=== PATIENT | male | born 1980 | race Caucasian/White ===

== ENCOUNTER 2020-04-09 23:46 | Inpatient (IN) | payer MEDICAID, SELFPAY ==
[2020-04-09 23:51] VITALS: BP 101/67; PULSE 80; RESP 16; TEMP 36.6; O2SAT 97; BMI 27.2
--- NOTE | 2020-04-09 23:52 | ED_ITS ---
HPI - Psych General: Stated Complaint: Psych Eval Time Seen by Provider: 04/09/20 23:50 Source: patient and EMS Mode of arrival: EMS Limitations: no limitations History of Present Illness: HPI Narrative: 40-year-old male that is transferred here for direct admit to psychiatric facility. Patient here stop by the ER for code screening. Patient has had a recent negative cover test he states he has had no cough or fever. See no signs for testing. Patient has been paranoid and is wanting to get help. Associated symptoms: Reports depression Review of Systems Const: Denies: fever(s), chills, body aches or change in appetite Eyes: Denies: blurry vision or eye discomfort ENMT: Denies: throat pain or dental pain Card: Denies: chest pain Resp: Denies: dyspnea GI: Denies: abdominal pain, nausea, vomiting or diarrhea : Denies: dysuria Musc: Denies: neck pain or back pain Skin/Breast: Denies: rash Neuro: Denies: headache(s) Psych: Reports: depression and paranoia Amilcar/Lymph: Denies: easy bruising All/Imm: Denies: urticaria Physical Exam Const: COMMON NORMALS: no acute distress, patient oriented x3 and healthy appearing HENMT: COMMON NORMALS: normocephalic and atraumatic HEAD & SCALP: normocephalic and atraumatic Eye: COMMON NORMALS: Equal, round and reactive pupils present and EOMs intact bilaterally PUPIL: Yes Equal, round and reactive pupils present Neck/C-Spine: COMMON NORMALS: full ROM and supple Chest: COMMONS NORMALS: normal inspection of the chest and normal palpation of entire chest wall Resp: COMMON NORMALS: normal respiratory effort, No retractions, No use of accessory muscles and clear to auscultation bilaterally AUSCULTATION: clear to auscultation bilaterally Cardio: COMMON NORMALS: regular rate, regular rhythm and No murmurs present (Cardio) RATE: regular rate RHYTHM: regular rhythm GI: COMMON NORMALS: Normal to inspection, nondistended, normoactive bowel sounds present, Soft to palpation, non-tender and no masses PALPATION: Yes Soft to palpation Extremity: COMMON NORMALS: normal to inspection and full ROM Neuro: COMMON NORMALS: patient oriented x3, moves all extremities and no focal motor deficits Psych: COMMON NORMALS: cooperative ATTITUDE: Yes Guarded attititude/behavior present ACTIVITY/MOTOR BEHAVIOR: Yes Avoids eye contact (attititude/behavior) MOOD & AFFECT: Yes depressed mood and Yes Flat affect present Skin: COMMON NORMALS: no rashes or lesions noted and no wounds GENERAL SKIN EXAM: no rashes or lesions noted MDM - Psych MDM Narrative: Medical decision making narrative: Patient presents here with acute psychosis along with some paranoia. Patient states he was screened for COVID and had a negative COVID test. He has no cough or fever. He is stable here and stable for admission to psychiatric unit Discharge Plan Discharge Patient Disposition: Admitted As Inpatient Clinical Impression: Paranoia, Psychosis Condition: Stable Coding Level of Care Code ED Renewable Energy Division Manager for Shira Rosa
[2020-04-10 00:15] VITALS: BP 125/83; PULSE 81; RESP 18; TEMP 36.4; O2SAT 98
[2020-04-10 00:38] VITALS: RESP 16
[2020-04-10 06:00] VITALS: BP 116/72; PULSE 61; RESP 18; TEMP 36.5; O2SAT 98
[2020-04-10] MEDS: nicotine 2 mg Gum BUCCAL ×5 (07:51→17:12)
[2020-04-10] MEDS: ARIPiprazole 10 mg Tablet 5 MG PO (12:58)
[2020-04-10 13:11] VITALS: BP 125/82; PULSE 75; RESP 18; TEMP 36.5; O2SAT 96
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
[2020-04-10 22:00] VITALS: RESP 16
--- NOTE | 2020-04-10 22:33 | NUR.SHIFT ---
ON ASSESSMENT, LUNGS BILATERALLY CLEAR THROUGHOUT, HEART SOUNDS ARE NORMAL S1 AND S2, AND BOWEL SOUNDS ARE ACTIVE IN ALL FOUR QUADRANTS. PATIENT JUST SAID THAT HE IS SLEEPY AND NEEDS TO REST. HE HAS BEEN IN HIS BED THIS EVENING SINCE 1900 THIS EVENING WITHOUT INCIDENT.
[2020-04-11 06:00] VITALS: BP 115/71; PULSE 65; RESP 16; TEMP 36.8; O2SAT 97
[2020-04-11] MEDS: nicotine 2 mg Gum BUCCAL ×4 (07:49→17:31)
[2020-04-11] MEDS: ARIPiprazole 10 mg Tablet PO (07:50)
[2020-04-11] MEDS: buPROPion XL (24 HR) 150 mg Tablet PO (10:43)
[2020-04-11 13:21] VITALS: BP 103/67; PULSE 78; RESP 18; TEMP 36.9; O2SAT 97
--- NOTE | 2020-04-11 15:21 | P.PN_ITS ---
Subjective NPU Subjective: Interval history: Gagandeep presented to the appointment reporting that he is tolerating the medication fine but his energy is still low. We discussed the risk benefits and alternatives of initiating Wellbutrin XL and he agreed to proceed as is documented in this note. He denied any issues with eating though did request larger portions, and he does report that he is sleeping well but he feels like he is sleeping too much and he still feels tired. Mental Status Exam MSE Comments: This is an overweight white male with limited dress, grooming and eye contact. No abnormal movements except for psychomotor retardation. Cooperative with exam in mild to moderate distress. Speech was decreased rate and volume, mood described as tired, affect congruent. Thought process linear. Thought content: Patient endorsed some suicidal thinking, there were no homicidal thoughts reported. There are no delusions reported but clear paranoia and persecutory delusions present, he endorsed auditory and visual hallucinations. Attention and concentration were mostly intact in memory was unreliable but none were formally tested. He is alert and oriented times person and place. Insight and judgment are limited, impulse control is impaired. Vitals/I&O/Wt Last Vital Signs Temp 98.9 F 04/11/20 21:05 Pulse 72 04/11/20 21:05 Resp 19 H 04/11/20 21:05 BP 100/61 04/11/20 21:05 Pulse Ox 97 04/11/20 21:05 Weight last 48 hrs Weight 86.183 kg A&P Additional A&P Information (1) Paranoia: (2) Psychosis: Is a 40-year-old white male with acute psychosis with a history of psychotic behavior that led to hospitalization who presents reporting that he is open to a medication trial.. 1. Continue current medication. Initiate Wellbutrin XL 150 mg p.o. every morning. 2. Encourage individual group and milieu therapy. 3. Continue every 15 minute checks. 4. Encourage sober living treatment at the highest level of care to which he is willing to commit. Involuntary Hold Information 96 Hour Hold: 96 Hour Involuntary Admission: No Attestations NPU Medical Necessity Statement*: Inpatient hospitalization is medically necessary and the clinically appropriate intervention at this time. We will monitor medications and make changes as indicated. Likely length of stay 3-5 days. Coding Level of Care Code Acute Landscaping Manager for Shira Rosa
[2020-04-11 21:05] VITALS: BP 100/61; PULSE 72; RESP 19; TEMP 37.2; O2SAT 97
[2020-04-12 06:00] VITALS: BP 111/77; PULSE 67; RESP 17; TEMP 36.7; O2SAT 98
[2020-04-12] MEDS: nicotine 2 mg Gum BUCCAL ×5 (06:07→16:59)
[2020-04-12] MEDS: ARIPiprazole 10 mg Tablet PO (07:57)
[2020-04-12] MEDS: buPROPion XL (24 HR) 150 mg Tablet PO (07:58)
--- NOTE | 2020-04-12 09:27 | P.PN_ITS ---
Subjective NPU Subjective: Interval history: Feliciano presented to the unit frustrated and he needed some de-escalation. He requested only to speak to this racebook writer. When I went down to his room he was somewhat challenging in asking me ?what is the plan,? and ?what are we going to do,? instead of just giving him this sensory deprivation. We had a fairly lengthy discussion about the different things that were going on behind the scenes and that we had discussed with him regarding assisting him in getting an RTF, and starting him on the Wellbutrin and Abilify XL, and helping him manage and treat his paranoia, etc. He calmed down some. He was also requesting that he get his belongings, which I explained we do not do. Ultimately, he wanted to just do some hygiene but he did not identify his toothbrush and things like that that he received, so after that he was able to calm down and identify that we were there to assist him, but he just did not understand the process. Mental Status Exam MSE Comments: This is a well-nourished, overweight, white male, with limited dress and grooming, but adequate eye contact. No abnormal movements, except for mild psychomotor agitation. Semi-cooperative with exam in no acute distress. Speech was normal rate and volume. Mood described as frustrated; affect irritable. Thought process, organized. Thought content: patient denied any suicidal or homicidal ideation; he does endorse some paranoia but he does appear less paranoid; he denied any active hallucinations. Attention, concentration, and memory appeared intact but none were formally tested. Alert and oriented times three. Insight and judgment are limited but improving. Impulse control is limited. Vitals/I&O/Wt Last Vital Signs Temp 98.5 F 04/12/20 20:23 Pulse 68 04/12/20 20:23 Resp 18 04/12/20 20:23 BP 99/63 04/12/20 20:23 Pulse Ox 96 04/12/20 20:23 A&P Additional A&P Information (1) Paranoia: (2) Psychosis: Is a 40-year-old white male with acute psychosis with a history of psychotic behavior that led to hospitalization who presents reporting that he is open to a medication trial.. 1. Continue current medication. 2. Encourage individual group and milieu therapy. 3. Continue every 15 minute checks. 4. Encourage sober living treatment at the highest level of care to which he is willing to commit. 5. He has a commitment from an [facility], however he must get a negative COVID test to be able to accept the bed. A PTC COVID was ordered after consultation with Dr. Castro. Involuntary Hold Information 96 Hour Hold: 96 Hour Involuntary Admission: No Attestations NPU Medical Necessity Statement*: Inpatient hospitalization is medically necessary and the clinically appropriate intervention at this time. We will monitor medications and make changes as indicated. Likely length of stay 2-4 days. Will discharge to [facility] when COVID testing returns negative. Coding Level of Care Code Acute Control Tower Operator for Shira Rosa
[2020-04-12 14:00] VITALS: BP 118/79; PULSE 97; RESP 20; TEMP 36.6; O2SAT 96
[2020-04-12 20:23] VITALS: BP 99/63; PULSE 68; RESP 18; TEMP 36.9; O2SAT 96
--- NOTE | 2020-04-13 04:34 | PC.NURSE ---
Patient is talkative this evening. He is an avid reader and likes books like [employer]ingerprints [employer] He feels bored and locked up in this unit. He stated it feels worse than shelter. He seemed to go to sleep without much effort today. He refused medication tonight for anxiety although he said is feeling anxious.
[2020-04-13] MEDS: nicotine 2 mg Gum BUCCAL ×6 (05:53→17:16)
[2020-04-13 06:00] VITALS: BP 121/87; PULSE 88; RESP 20; TEMP 36.6; O2SAT 96
[2020-04-13] MEDS: buPROPion XL (24 HR) 150 mg Tablet PO (09:51)
--- NOTE | 2020-04-13 13:02 | P.PN_ITS ---
Subjective NPU Subjective: Interval history: Gagandeep presents today looking forward to getting his lab work back and heading to the [facility] that has accepted him. He reported that he is doing better each day on the medication. Advised him about and to increase his Abilify to 15 mg and he understood and agreed to proceed as is documented in this note. He denied any problems or issues just expressed an interest in being able to discharge as soon as possible. He reports that he is eating fine and sleeping less which is good. Mental Status Exam MSE Comments: This is a well-nourished, overweight, white male, with limited dress and grooming, but improving eye contact. No abnormal movements, except for mild psychomotor retardation. Cooperative with exam in no acute distress. Speech was normal rate and volume. Mood described as a little better; affect slightly subdued. Thought process, organized. Thought content: patient denied any suicidal or homicidal ideation; he does endorse some paranoia but he does appear less paranoid; he denied any active hallucinations. Attention, concentration, and memory appeared intact but none were formally tested. He is alert and oriented times three. Insight and judgment are limited but improving. Impulse control is limited. Vitals/I&O/Wt Last Vital Signs Temp 97.8 F 04/13/20 06:00 Pulse 88 04/13/20 06:00 Resp 20 H 04/13/20 06:00 BP 121/87 04/13/20 06:00 Pulse Ox 96 04/13/20 06:00 A&P Additional A&P Information (1) Paranoia: (2) Psychosis: Is a 40-year-old white male with acute psychosis with a history of psychotic behavior that led to hospitalization who presents reporting that he is open to a medication trial. 1. Continue current medication. 2. Encourage individual group and milieu therapy. 3. Continue every 15 minute checks. 4. Encourage sober living treatment at the highest level of care to which he is willing to commit. 5. He has a commitment from an [facility], awaiting the results from his COVID test. Involuntary Hold Information 96 Hour Hold: 96 Hour Involuntary Admission: No Attestations NPU Medical Necessity Statement*: Inpatient hospitalization is medically necessary and the clinically appropriate intervention at this time. We will monitor medications and make changes as indicated. Likely length of stay 2-4 days. Will discharge to [facility] when COVID testing returns negative. Coding Level of Care Code Acute Volunteer Manager for Shira Rosa
[2020-04-13 14:00] VITALS: BP 104/68; PULSE 80; RESP 18; TEMP 36.6; O2SAT 95
[2020-04-13 21:12] VITALS: BP 97/59; PULSE 70; RESP 15; TEMP 36.4; O2SAT 97
[2020-04-14] MEDS: nicotine 2 mg Gum BUCCAL ×5 (03:05→12:08)
[2020-04-14 03:42] LABS: Coronavirus Lab Test PTC Negative
[2020-04-14 06:00] VITALS: BP 123/80; PULSE 67; RESP 15; TEMP 36.3; O2SAT 96
[2020-04-14] MEDS: buPROPion XL (24 HR) 150 mg Tablet PO (08:13)
--- NOTE | 2020-04-14 08:14 | PC.NURSE ---
refused scheduled Abilify, states it makes him too tired
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
[2020-04-14 11:34] VITALS: BP 123/80; PULSE 67; RESP 15; TEMP 36.3; O2SAT 96
== END 2020-04-14 13:03 | disposition home or self-care (01) | DRG 885 ==
LOC: ER 23:54 → NP 04-10
PROVIDERS: Admitting Provider Psychiatry & Neurology Psychiatry; Visit Provider Psychiatry & Neurology Psychiatry
DX: F23 Brief psychotic disorder (principal); R45.851 Suicidal ideations; F22 Delusional disorders; F32.9 Major depressive disorder, single episode, unspecified; Z59.0 Homelessness; Z81.3 Family history of other psychoactive substance abuse and dependence; F41.9 Anxiety disorder, unspecified; F19.10 Other psychoactive substance abuse, uncomplicated
CPT/HCPCS: 12345; 87635; 96372; 99284

== ENCOUNTER 2020-05-02 21:00 | Inpatient (IN) | payer MEDICAID, SELFPAY ==
[2020-05-02 21:38] VITALS: BMI 27.2
[2020-05-02 21:58] VITALS: BP 167/92; PULSE 66; RESP 18; TEMP 36.4; O2SAT 98
[2020-05-02 21:59] VITALS: BP 167/92; PULSE 66; RESP 18; TEMP 36.4; O2SAT 98
--- NOTE | 2020-05-02 22:30 | PC.NURSE ---
Skin assessment revealed no wounds or abnormalities.
[2020-05-03 06:00] VITALS: BP 127/84; PULSE 56; RESP 15; TEMP 36.5; O2SAT 95
[2020-05-03] MEDS: buPROPion XL (24 HR) 150 mg Tablet PO (07:49)
[2020-05-03] MEDS: folic acid 1 mg Tablet PO (07:49)
[2020-05-03] MEDS: nicotine 2 mg Gum BUCCAL ×4 (07:49→17:15)
[2020-05-03] MEDS: thiamine 100 mg Tablet 200 MG PO (07:50)
--- NOTE | 2020-05-03 13:21 | NPU.GN ---
Gagandeep did not attend group this afternoon.
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
[2020-05-03 14:00] VITALS: BP 117/82; PULSE 82; RESP 18; TEMP 36.2; O2SAT 96
[2020-05-03] MEDS: ARIPiprazole 30 mg Tablet 15 MG PO (21:53)
[2020-05-03] MEDS: trazodone 50 mg Tablet PO (21:54)
[2020-05-03 22:00] VITALS: BP 128/83; PULSE 79; RESP 18; TEMP 36.5; O2SAT 98
--- NOTE | 2020-05-04 00:54 | NUR.SHIFT ---
Patient is calm, cooperative, and talkative this evening. He told me that he is upset that his placement in [place] did not work out and that he is concerned that he will have his probation violated as a result of being homeless again. He wishes to speak with the psych social worker in the morning. He stated that he don't want to be placed in a facility but that he wishes that he could get into his own apartment. he states that he has an income and he feels like if he had a fresh start in his own home that he could be successful.
[2020-05-04 05:59] VITALS: BP 117/76; PULSE 97; RESP 16; TEMP 36.6; O2SAT 98
[2020-05-04] MEDS: folic acid 1 mg Tablet PO (08:24)
[2020-05-04] MEDS: thiamine 100 mg Tablet 200 MG PO (08:24)
[2020-05-04] MEDS: buPROPion XL (24 HR) 150 mg Tablet PO (08:24)
[2020-05-04] MEDS: nicotine 2 mg Gum 4 MG BUCCAL ×2 (08:26→20:16)
[2020-05-04] MEDS: acetaminophen 325 mg Tablet 650 MG PO (09:23)
[2020-05-04] MEDS: ibuprofen 800 mg tablet PO (13:43)
[2020-05-04 14:00] VITALS: BP 122/64; PULSE 68; RESP 18; TEMP 37.1; O2SAT 98
--- NOTE | 2020-05-04 17:25 | P.PN_ITS ---
Subjective NPU Subjective: Interval history: Gagandeep participated in and he is doing okay. He reports that he was hoping that the social worker assistant was able to make some of the calls that they discussed as he is somewhat anxious about finding some place to live. He reports that he is adjusting to the restart of his medication but that overall he feels things are going in the right direction. Mental Status Exam MSE Comments: This is a well-nourished, overweight, white male, with adequate dress and grooming, and limited eye contact. No abnormal movements, except for mild psychomotor retardation. Cooperative with exam in no acute distress. Speech was decreased rate and normal volume. Mood described as depressed; affect congruent. Thought process, organized. Thought content: patient denied any suici sudha or homicidal ideation; there is no delusions reported and he does appear less paranoid; he denied any active hallucinations. Attention, concentration, and memory appeared intact but none were formally tested. He is alert and oriented times three. Insight and judgment are fair. Impulse control is limited. Vitals/I&O/Wt Last Vital Signs Temp 98.1 F 05/04/20 22:00 Pulse 70 05/04/20 22:00 Resp 18 05/04/20 22:00 BP 141/86 05/04/20 22:00 Pulse Ox 99 05/04/20 22:00 A&P Additional A&P Information (1) Paranoia: (2) Psychosis: Is a 40-year-old white male with acute psychosis with a history of psychotic behavior that led to hospitalization less than a month ago who returns due to reports of suicidality and some psychosocial stressors, who has been off of his medication. 1. Continue current medication. 2. Encourage individual group and milieu therapy. 3. Continue every 15 minute checks. 4. Encourage sober living treatment at the highest level of care to which he is willing to commit. 5. We will identify possible placement options. Involuntary Hold Information 96 Hour Hold: 96 Hour Involuntary Admission: No Attestations NPU Medical Necessity Statement*: Inpatient hospitalization is medically necessary and the clinically appropriate intervention at this time. We will monitor medications and make changes as indicated. Likely length of stay 2-4 days. Coding Level of Care Code Acute Diaphragm Builder for Shira Rosa
[2020-05-04 22:00] VITALS: BP 141/86; PULSE 70; RESP 18; TEMP 36.7; O2SAT 99
[2020-05-05 06:00] VITALS: BP 103/64; PULSE 72; RESP 16; TEMP 36.7; O2SAT 97
[2020-05-05] MEDS: thiamine 100 mg Tablet 200 MG PO (08:14)
[2020-05-05] MEDS: buPROPion XL (24 HR) 150 mg Tablet PO (08:14)
[2020-05-05] MEDS: folic acid 1 mg Tablet PO (08:14)
[2020-05-05] MEDS: ibuprofen 800 mg tablet PO (08:56)
[2020-05-05 14:00] VITALS: BP 106/73; PULSE 90; RESP 20; TEMP 36.2; O2SAT 97
--- NOTE | 2020-05-05 17:05 | PM.NPN ---
Subjective NPU Subjective: Interval history: Gagandeep presented today reporting that his energy continues to be low. He refused his nighttime Abilify last night but continues to assert that he was having this difficulty before he started the Abilify. We then discussed the common causes of low energy and people and agreed that I would review and make recommendations on the matter. He ultimately asked if there was not a pill that could give him energy. We discussed the fact that there clearly are pills like that but given his situation it would not be appropriate and in general giving medications/stimulants for low energy are not appropriate without a robust investigation of the cause. Mental Status Exam MSE Comments: This is a well-nourished, overweight, white male, with adequate dress and grooming, and limited eye contact. No abnormal movements, except for mild psychomotor retardation. Cooperative with exam in no acute distress. Speech was decreased rate and normal volume. Mood described as I am tired; affect subdued. Thought process, organized. Thought content: patient denied any suicidal or homicidal ideation; there is no delusions reported and he does appear less paranoid; he denied any active hallucinations. Attention, concentration, and memory appeared intact but none were formally tested. He is alert and oriented times three. Insight and judgment are fair. Impulse control is limited. Vitals/I&O/Wt Last Vital Signs Temp 98.2 F 05/05/20 21:21 Pulse 73 05/05/20 21:21 Resp 18 05/05/20 21:21 BP 116/76 05/05/20 21:21 Pulse Ox 98 05/05/20 21:21 A&P Additional A&P Information (1) Paranoia: (2) Psychosis: Is a 40-year-old white male with acute psychosis with a history of psychotic behavior that led to hospitalization less than a month ago who returns due to reports of suicidality and some psychosocial stressors, who has been off of his medication. 1. Continue current medication. 2. Encourage individual group and milieu therapy. 3. Continue every 15 minute checks. 4. Encourage sober living treatment at the highest level of care to which he is willing to commit. 5. We will identify possible placement options. 6. We will review his records to identify if there are any concerns for hypothyroid, anemia or iron deficiency as he denied actual sleep difficulties/symptoms consistent with apnea. Involuntary Hold Information 96 Hour Hold: 96 Hour Involuntary Admission: No Attestations NPU Medical Necessity Statement*: Inpatient hospitalization is medically necessary and the clinically appropriate intervention at this time. We will monitor medications and make changes as indicated. Likely length of stay 2-4 days. Coding Level of Care Code Acute Ham Rolling Machine Operator for Shira Rosa
[2020-05-05] MEDS: trazodone 50 mg Tablet PO (20:21)
[2020-05-05] MEDS: ARIPiprazole 30 mg Tablet 15 MG PO (20:21)
--- NOTE | 2020-05-05 20:28 | PC.NURSE ---
PRN TRAZODONE ADMINISTERED TRAZODONE 50MG PO PER PT REQUEST FOR SLEEP AID. WILL MONITOR FOR MEDICATION EFFECTIVENESS.
[2020-05-05 21:21] VITALS: BP 116/76; PULSE 73; RESP 18; TEMP 36.8; O2SAT 98
--- NOTE | 2020-05-05 22:11 | PC.NURSE ---
attn Social workers Patient is interested in going to a care home short term and is interested in receiving housing assistance via the [facility]. He is aware that there are options available for possible assistance in obtaining financial help to establish housing in our area. He stated that his roommate received this assistance and they helped pay his rent/utilities for 6 months. Gagandeep's desire is to be in his own home and feels that he would be more successful if he had his own residence. He keeps saying he needs stability in his life.
[2020-05-06 06:00] VITALS: BP 88/51; PULSE 85; RESP 14; TEMP 36.8; O2SAT 98
[2020-05-06] MEDS: thiamine 100 mg Tablet 200 MG PO (08:03)
[2020-05-06] MEDS: buPROPion XL (24 HR) 150 mg Tablet PO (08:03)
[2020-05-06] MEDS: folic acid 1 mg Tablet PO (08:03)
[2020-05-06 14:00] VITALS: BP 104/72; PULSE 99; RESP 20; TEMP 36.2; O2SAT 98
--- NOTE | 2020-05-06 14:32 | PM.NPN ---
Subjective NPU Subjective: Interval history: Ravi presented today reporting that he is feeling about the same as he is felt. He continues to report feeling subdued. None of the laboratory work from the outside hospital suggest any clear issues we discussed the risk benefits and alternatives of getting some labs in the morning and replete as documented in this note. Mental Status Exam MSE Comments: This is a well-nourished, overweight, white male, with adequate dress and grooming, and limited eye contact. No abnormal movements, except for mild psychomotor retardation. Cooperative with exam in no acute distress. Speech was decreased rate and normal volume. Mood described as same ole same ole; affect subdued. Thought process, organized. Thought content: patient denied any suicidal or homicidal ideation; there is no delusions reported and he does appear less paranoid; he denied any active hallucinations. Attention, concentration, and memory appeared intact but none were formally tested. He is alert and oriented times three. Insight and judgment are fair. Impulse control is limited. Vitals/I&O/Wt Last Vital Signs Temp 97.2 F L 05/06/20 14:00 Pulse 99 05/06/20 14:00 Resp 20 H 05/06/20 14:00 BP 104/72 05/06/20 14:00 Pulse Ox 98 05/06/20 14:00 A&P Additional A&P Information (1) Paranoia: (2) Psychosis: Is a 40-year-old white male with acute psychosis with a history of psychotic behavior that led to hospitalization less than a month ago who returns due to reports of suicidality and some psychosocial stressors, who has been off of his medication. 1. Continue current medication. 2. Encourage individual group and milieu therapy. 3. Continue every 15 minute checks. 4. Encourage sober living treatment at the highest level of care to which he is willing to commit. 5. We will identify possible placement options. 6. We will recheck labs in the morning. Involuntary Hold Information 96 Hour Hold: 96 Hour Involuntary Admission: No Attestations NPU Medical Necessity Statement*: Inpatient hospitalization is medically necessary and the clinically appropriate intervention at this time. We will monitor medications and make changes as indicated. Likely length of stay 1-3 days. Coding Level of Care Code Acute Brusher Tender for Shira Rosa
[2020-05-06] MEDS: ibuprofen 800 mg tablet PO (18:46)
[2020-05-06] MEDS: acetaminophen 325 mg Tablet 650 MG PO (19:34)
[2020-05-06] MEDS: ARIPiprazole 30 mg Tablet 15 MG PO (21:13)
[2020-05-06] MEDS: trazodone 50 mg Tablet PO (21:13)
[2020-05-06 21:43] VITALS: BP 131/97; PULSE 94; RESP 15; TEMP 36.7; O2SAT 97
[2020-05-07 06:00] VITALS: BP 110/71; PULSE 68; RESP 17; TEMP 36.4; O2SAT 96
[2020-05-07] MEDS: folic acid 1 mg Tablet PO (07:59)
[2020-05-07] MEDS: buPROPion XL (24 HR) 150 mg Tablet PO (07:59)
[2020-05-07] MEDS: thiamine 100 mg Tablet 200 MG PO (07:59)
[2020-05-07] MEDS: ibuprofen 800 mg tablet PO (10:55)
[2020-05-07 14:00] VITALS: BP 92/55; PULSE 71; RESP 16; TEMP 36.9; O2SAT 97
--- NOTE | 2020-05-07 15:52 | P.PN_ITS ---
Subjective NPU Subjective: Interval history: Gagandeep presents today essentially unchanged and still reporting his general lethargy. We discussed the risk benefits and alternatives of getting repeat set of labs in the morning which he understood and agreed to proceed as documented in this note. We also reviewed a plan to work with the treatment team in the morning to see if there are any options for placement/RCF given his situation with the [facility]. Mental Status Exam MSE Comments: This is a well-nourished, overweight, white male, with adequate dress and grooming, and limited eye contact. No abnormal movements, except for mild psychomotor retardation. Cooperative with exam in no acute distress. Speech was decreased rate and normal volume. Mood described as still tired; affect subdued. Thought process, organized. Thought content: patient denied any suicidal or homicidal ideation; there is no delusions reported and he does appear less paranoid; he denied any active hallucinations. Attention, concentration, and memory appeared intact but none were formally tested. He is alert and oriented times three. Insight and judgment are fair. Impulse control is limited. Vitals/I&O/Wt Last Vital Signs Temp 97.6 F 05/07/20 22:00 Pulse 68 05/07/20 22:00 Resp 18 05/07/20 22:00 BP 93/53 05/07/20 22:00 Pulse Ox 96 05/07/20 22:00 Weight last 48 hrs Weight 86.183 kg A&P Additional A&P Information (1) Paranoia: (2) Psychosis: Is a 40-year-old white male with acute psychosis with a history of psychotic behavior that led to hospitalization less than a month ago who returns due to reports of suicidality and some psychosocial stressors, who has been off of his medication. 1. Continue current medication. 2. Encourage individual group and milieu therapy. 3. Continue every 15 minute checks. 4. Encourage sober living treatment at the highest level of care to which he is willing to commit. 5. We will identify possible placement options. 6. Check lab results.. Involuntary Hold Information 96 Hour Hold: 96 Hour Involuntary Admission: No Attestations NPU Medical Necessity Statement*: Inpatient hospitalization is medically necessary and the clinically appropriate intervention at this time. We will monitor medications and make changes as indicated. Likely length of stay 1-3 days. Coding Level of Care Code Acute Retail Presentation Specialist for Shira Rosa
[2020-05-07] MEDS: trazodone 50 mg Tablet PO (21:18)
[2020-05-07] MEDS: ARIPiprazole 30 mg Tablet 15 MG PO (21:18)
[2020-05-07 22:00] VITALS: BP 93/53; PULSE 68; RESP 18; TEMP 36.4; O2SAT 96
[2020-05-08 06:00] VITALS: BP 92/49; PULSE 97; RESP 15; TEMP 36.7; O2SAT 97
[2020-05-08 07:20] LABS: Alanine Aminotransferase 40 U/L (0-41); Albumin Level 4.7 g/dL (3.5-5.2); Alkaline Phosphatase 95 IU/L (40-130); Chloride 104 mmol/L (98-107); Iron 120 ug/dL (59-158); Percent Saturation 35.3 % (20-50); Potassium 4.8 mmol/L (3.5-5.1); Sodium 139 mmol/L (136-145); Total Iron Binding Capacity 339 mcg/dl; Unsaturated Iron Binding 219 ug/dL (112-347)
[2020-05-08 07:54] LABS: Erythrocyte Sedimentation Rate 22 mm/hr (0-10)
[2020-05-08 08:09] LABS: Anion Gap 17.7 (5-19); Aspartate Amino Transferase 24 U/L (0-40); Blood Urea Nitrogen 19 mg/dL (6-20); Carbon Dioxide 22 mmol/L (22-29); Globulin 2.8 g/dL (1.3-4.6); Glomerular Filtration Rate 93.5 mL/min (90-130); Glucose 98 mg/dL (65-115); Osmolality Calculated 290 mOsm/kg (285-295); Thyroid Stimulating Hormone 1.74 uIU/mL (0.27-4.20); Total Bilirubin 0.2 mg/dL (0.15-1.2); Total Protein 7.3 g/dL (6.6-8.7)
[2020-05-08] MEDS: thiamine 100 mg Tablet 200 MG PO (08:22)
[2020-05-08] MEDS: buPROPion XL (24 HR) 150 mg Tablet PO (08:22)
[2020-05-08] MEDS: folic acid 1 mg Tablet PO (08:22)
[2020-05-08 14:22] VITALS: BP 122/80; PULSE 79; RESP 18; TEMP 36.2; O2SAT 98
--- NOTE | 2020-05-08 17:22 | P.PN_ITS ---
Subjective NPU Subjective: Interval history: Gagandeep presents today having secured an acceptance at an [facility]. He is very happy off that. We discussed his laboratory studies which were only significant for elevated ESR with skin studies is commonly seen in people who complain of fatigue but it is a nonspecific finding which may require additional exploration. Otherwise he is excited about the opp ortunity and we discussed getting his medications and everything ordered today so that there are no hold-ups for an early discharge tomorrow. Mental Status Exam MSE Comments: This is a well-nourished, overweight, white male, with adequate dress and grooming, and limited eye contact. No abnormal movements, except for resolving psychomotor retardation. Cooperative with exam in no acute distress. Speech was more normal rate and normal volume. Mood described as happy about the placement; affect less subdued. Thought process, organized. Thought content: patient denied any suicidal or homicidal ideation; there were no delusions reported or noted: He denied any active hallucinations. Attention, concentr ation, and memory appeared intact but none were formally tested. He is alert and oriented times three. Insight and judgment are fair. Impulse control is limited, but improving. Vitals/I&O/Wt Last Vital Signs Temp 97.2 F L 05/08/20 14:22 Pulse 79 05/08/20 14:22 Resp 18 05/08/20 14:22 BP 122/80 05/08/20 14:22 Pulse Ox 98 05/08/20 14:22 Weight last 48 hrs Weight 86.183 kg Data NPU : 05/08/20 06:43 A&P Additional A&P Information (1) Paranoia: (2) Psychosis: Is a 40-year-old white male with acute psychosis with a history of psychotic behavior that led to hospitalization less than a month ago who returns due to reports of suicidality and some psychosocial stressors, who has been off of his medication. 1. Continue current medication. 2. Encourage individual group and milieu therapy. 3. Continue every 15 minute checks. 4. Encourage sober living treatment at the highest level of care to which he is willing to commit. 5. We will discharge tomorrow to the excepting [facility]. 6. Lab work unremarkable except for an elevated ESR. Involuntary Hold Information 96 Hour Hold: 96 Hour Involuntary Admission: No Attestations NPU Medical Necessity Statement*: Inpatient hospitalization is medically necessary and the clinically appropriate intervention at this time. We will monitor medications and make changes as indicated. Tentative plan for discharge tomorrow. Coding Level of Care Code Acute Assistant Education Director for Shira Rosa
[2020-05-08] MEDS: hydrocortisone 1% cream 28 gm 1 APPLIC TOPICAL (17:45)
[2020-05-08] MEDS: trazodone 50 mg Tablet PO (21:49)
[2020-05-08] MEDS: ARIPiprazole 30 mg Tablet 15 MG PO (21:51)
[2020-05-08 22:00] VITALS: BP 106/66; PULSE 70; RESP 18; TEMP 36.8; O2SAT 98
[2020-05-09 06:00] VITALS: BP 81/47; PULSE 62; RESP 16; TEMP 36.8; O2SAT 96
[2020-05-09] MEDS: buPROPion XL (24 HR) 150 mg Tablet PO (07:49)
[2020-05-09] MEDS: folic acid 1 mg Tablet PO (07:49)
[2020-05-09] MEDS: thiamine 100 mg Tablet 200 MG PO (07:49)
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
[2020-05-09 09:33] VITALS: BP 81/47; PULSE 62; RESP 16; TEMP 36.8; O2SAT 96
== END 2020-05-09 12:32 | disposition home or self-care (01) | DRG 885 ==
PROVIDERS: Admitting Provider Psychiatry & Neurology Psychiatry; Visit Provider Psychiatry & Neurology Psychiatry
DX: F23 Brief psychotic disorder (principal); F19.10 Other psychoactive substance abuse, uncomplicated; L30.9 Dermatitis, unspecified; Z62.810 Personal history of physical and sexual abuse in childhood; E66.9 Obesity, unspecified; Z68.27 Body mass index [BMI] 27.0-27.9, adult
CPT/HCPCS: 12345; 36415; 80053; 83540; 83550; 84443; 85651; 96372

== ENCOUNTER 2020-06-06 13:27 | Outpatient (CLI) | payer MEDICAID, SELFPAY ==
--- NOTE | 2020-06-06 13:30 | MM_ITS ---
WS: [id number] DIAGNOSTIC BILATERAL DIGITAL MAMMOGRAM WITH CAD LEFT breast ultrasound, limited. HISTORY: breast mass - left breast 4-5 oclock position COMPARISON: None available. TECHNIQUE: Bilateral craniocaudad, mediolateral oblique, and mediolateral views are submitted. Spot c ompression LEFT CC and MLO. Computer aided detection utilized. Breast composition: The breasts are almost entirely fatty. Palpable markers are placed over the later al mid LEFT breast tissue. There is no underlying mass identified. There are benign-appearing fatty r eplaced lymph nodes in the LEFT axilla. No nipple retraction. No suspicious calcifications in either breast. LEFT breast ultrasound, limited. Ultrasound directed to the palpable abnormality. There is a narrow band of soft tissue but no mass id entified. Probably represents muscle. No shadowing or increased vascularity. Benign fatty replaced ly mph nodes in the axilla. MM/[id number] IMPRESSION: BI-RADS: 2-Benign FOLLOW UP: See Report No additional follow-up necessary. LACK OF RADIOGRAPHIC EVIDENCE OF MALIGNANCY SHOULD NOT DELAY BIOPSY IF A CLINIC ALLY SUSPICIOUS MASS IS PRESENT.
--- NOTE | 2020-06-06 14:15 | US_ITS ---
WS: [id number] DIAGNOSTIC BILATERAL DIGITAL MAMMOGRAM WITH CAD LEFT breast ultrasound, limited. HISTORY: breast mass - left breast 4-5 oclock position COMPARISON: None available. TECHNIQUE: Bilateral craniocaudad, mediolateral oblique, and mediolateral views are submitted. Spot c ompression LEFT CC and MLO. Computer aided detection utilized. Breast composition: The breasts are almost entirely fatty. Palpable markers are placed over the later al mid LEFT breast tissue. There is no underlying mass identified. There are benign-appearing fatty r eplaced lymph nodes in the LEFT axilla. No nipple retraction. No suspicious calcifications in either breast. LEFT breast ultrasound, limited. Ultrasound directed to the palpable abnormality. There is a narrow band of soft tissue but no mass id entified. Probably represents muscle. No shadowing or increased vascularity. Benign fatty replaced ly mph nodes in the axilla. US/US breast LT limited* [id number] IMPRESSION: BI-RADS: 2-Benign FOLLOW UP: See Report No additional follow-up necessary. LACK OF RADIOGRAPHIC EVIDENCE OF MALIGNANCY SHOULD NOT DELAY BIOPSY IF A CLINIC ALLY SUSPICIOUS MASS IS PRESENT.
== END 2020-06-06 13:28 | disposition home or self-care (01) ==
PROVIDERS: Visit Provider Nurse Practitioner Family
DX: N63.20 Unspecified lump in the left breast, unspecified quadrant (principal)
CPT/HCPCS: 76642; 77066

== ENCOUNTER → 2020-07-07 11:55 | Outpatient (BNVA) | payer MEDICAID, SELFPAY | PROVIDERS: Visit Provider Nurse Practitioner Family | DX: R53.83 Other fatigue (principal); M25.50 Pain in unspecified joint; E55.9 Vitamin D deficiency, unspecified; K40.90 Unilateral inguinal hernia, without obstruction or gangrene, not specified as recurrent; Z13.6 Encounter for screening for cardiovascular disorders; Z79.899 Other long term (current) drug therapy; Z90.79 Acquired absence of other genital organ(s) | CPT/HCPCS: 80053; 80061; 81003; 82306; 82607; 82746; 83036; 83550; 84402; 84403; 84439; 84443; 84481; 85025; 85651; 86140 ==

== ENCOUNTER → 2020-08-07 13:48 | Outpatient (BNVA) | payer MEDICAID, SELFPAY | PROVIDERS: Visit Provider Nurse Practitioner Family | DX: R53.83 Other fatigue (principal); E55.9 Vitamin D deficiency, unspecified; K40.90 Unilateral inguinal hernia, without obstruction or gangrene, not specified as recurrent; L30.9 Dermatitis, unspecified; Z13.6 Encounter for screening for cardiovascular disorders; Z79.899 Other long term (current) drug therapy; Z90.79 Acquired absence of other genital organ(s) | CPT/HCPCS: 86000; 86618; 86666; 86757 ==

== ENCOUNTER → 2020-08-22 14:27 | Outpatient (BNVA) | payer MEDICAID, SELFPAY | PROVIDERS: Visit Provider Psychiatry & Neurology Psychiatry | DX: F25.1 Schizoaffective disorder, depressive type (principal); F43.12 Post-traumatic stress disorder, chronic; F17.200 Nicotine dependence, unspecified, uncomplicated | CPT/HCPCS: 99204 ==

== ENCOUNTER → 2020-09-28 08:15 | Outpatient (BNVA) | payer MEDICAID, SELFPAY ==
[2020-09-08 11:00] VITALS: BP 136/86; BMI 28.0
== END ==
PROVIDERS: Visit Provider Counselor Mental Health
DX: F43.12 Post-traumatic stress disorder, chronic (principal); F25.1 Schizoaffective disorder, depressive type
CPT/HCPCS: 90834

== ENCOUNTER → 2020-10-02 07:34 | Outpatient (BNVA) | payer MEDICAID, SELFPAY ==
[2020-09-08 11:00] VITALS: BP 136/86; BMI 28.0
== END ==
PROVIDERS: Visit Provider Psychiatry & Neurology Psychiatry
DX: F25.1 Schizoaffective disorder, depressive type (principal); F43.12 Post-traumatic stress disorder, chronic; F19.10 Other psychoactive substance abuse, uncomplicated
CPT/HCPCS: 99214

== ENCOUNTER 2020-10-24 17:41 | Inpatient (IN) | payer MEDICAID, SELFPAY ==
[2020-09-08 11:00] VITALS: BP 136/86; BMI 28.0
[2020-10-24 17:47] VITALS: BP 136/96; PULSE 120; RESP 18; TEMP 36.7; O2SAT 96; BMI 29.6
--- NOTE | 2020-10-24 17:47 | ED_ITS ---
HPI - Psych General: Chief Complaint: Psychiatric Symptoms Stated Complaint: HALLUCINATIONS Time Seen by Provider: 10/24/20 17:43 Source: patient and EMS Mode of arrival: EMS Limitations: no limitations History of Present Illness: HPI Narrative: 40-year-old male has a history of schizophrenia and is currently on Wellbutrin needs to take much more medications for schizophrenia. Patient brought here by EMS as he is at home stating that he has been active monitored by multiple cameras in his health. He states that most people out to get him and they are watching him. Patient is extremely paranoid here. He will not make eye contact with me and is difficult to get much history as he is very paranoid to talk to me. He denies any suicidal homicidal ideations. Associated symptoms: Reports auditory hallucinations Review of Systems Const: Denies: fever(s), chills, body aches or change in appetite Eyes: Denies: blurry vision or eye discomfort ENMT: Denies: throat pain or dental pain Card: Denies: chest pain Resp: Denies: dyspnea GI: Denies: abdominal pain, nausea, vomiting or diarrhea : Denies: dysuria Musc: Denies: neck pain or back pain Skin/Breast: Denies: rash Neuro: Denies: headache(s) Psych: Reports: paranoia and auditory hallucinations Amilcar/Lymph: Denies: easy bruising All/Imm: Denies: urticaria PFSH ED PFSH: Medical History Facial eczema Generalized anxiety disorder Hypogonadism Vitamin D deficiency Surgical History H/O bilateral orchiectomies Patient has history of bilateral orchiectomies that patient reports was done due to testicular torsion. Status post right inguinal hernia repair Family History Other Cancer Family history of premature coronary artery disease Lung disease Social History Smoking and tobacco status: current every day smoker cigarettes Packs smoked per day: 0.20 and e-cigarettes E-Cigarette Details: vaporizer device and with nicotine Quit status (tobacco): has tried quititng Number of times tried to quit tobacco: 2 Second hand smoke exposure: No Alcohol intake: former Adopted: No Caregiver/support person: No Lives independently: No Household members: other Details: residential facility Housing: Assisted Living Facility Number of children: 0 Number of grandchildren: 0 Highest education level completed: GED or Equivalent service: No Current occupational status: disabled Current occupational exposures/hazards: No Pets and animals: No History of recent travel: No Leisure activites: games Sexually active: No Current gender identity: Male Rachael/Rastafarian: None Special rachael needs: No Agree to transfusion: Yes Financial difficulty paying for basics: Not Very Hard Physical Exam Const: COMMON NORMALS: no acute distress, patient oriented x3 and healthy appearing HENMT: COMMON NORMALS: normocephalic and atraumatic HEAD & SCALP: normocephalic and atraumatic Eye: COMMON NORMALS: Equal, round and reactive pupils present and EOMs intact bilaterally PUPIL: Yes Equal, round and reactive pupils present Neck/C-Spine: COMMON NORMALS: full ROM and supple Chest: COMMONS NORMALS: normal inspection of the chest and normal palpation of entire chest wall Resp: COMMON NORMALS: normal respiratory effort, No retractions, No use of accessory muscles and clear to auscultation bilaterally AUSCULTATION: clear to auscultation bilaterally Cardio: COMMON NORMALS: regular rate, regular rhythm and No murmurs present (Cardio) RATE: regular rate RHYTHM: regular rhythm GI: COMMON NORMALS: Normal to inspection, nondistended, normoactive bowel sounds present, Soft to palpation, non-tender and no masses PALPATION: Yes Soft to palpation Extremity: COMMON NORMALS: normal to inspection and full ROM Neuro: COMMON NORMALS: patient oriented x3, moves all extremities and no focal motor deficits Psych: COMMON NORMALS: mental status grossly normal ATTITUDE: Yes paranoid ACTIVITY/MOTOR BEHAVIOR: Yes disorganized behavior and Yes Avoids eye contact (attititude/behavior) THOUGHT CONTENT: Yes Hallucination(s) present Skin: COMMON NORMALS: no rashes or lesions noted and no wounds GENERAL SKIN EXAM: no rashes or lesions noted MDM - Psych MDM Narrative: Medical decision making narrative: Patient presents here with acute psychosis likely from schizophrenia. Patient's had severe paranoia here. I spoke to Dr. Cornejo and will admit to the Neuropsych Unit. Discharge Plan Discharge Patient Disposition: Admitted As Inpatient Admit Provider: Miky Cornejo Clinical Impression: Psychosis Qualifiers: Psychosis type: unspecified psychosis type Qualified Code(s): F29 - Unspecified psychosis not due to a substance or known physiological condition Condition: Stable Coding Level of Care Code ED Solar Field Service Technician for Shira Fwd Exam Comprehensive
[2020-10-24 19:08] LABS: Basophils % 0.4 %; Eosinophils # 0.4 10^3/uL (0.0-0.8); Eosinophils % 4.8 %; Hematocrit 41.3 % (42.0-52.0); Hemoglobin 13.8 g/dL (11.7-16.6); Lymphocytes # 2.3 10^3/uL (0.8-4.8); Lymphocytes % 27.8 %; Mean Corpuscular HGB Conc 33.4 g/dL (30.0-36.0); Mean Corpuscular Hemoglobin 28.1 pg (28.0-34.0); Mean Corpuscular Volume 84.1 fL (80-94); Mean Platelet Volume 10.1 fL (7.4-10.4); Monocytes # 0.7 10^3/uL (0.2-0.9); Monocytes % 8.7 %; Neutrophils # 4.79 10^3/uL (1.8-7.7); Neutrophils % 58.1 %; Nucleated Red Blood Cells % 0 %; Platelet Count 379 10^3/cmm (130-400); Red Blood Count 4.91 10^6/uL (4.1-5.3); Red Cell Distribution Width 13.1 % (12.1-15.1); White Blood Count 8.3 10^3/uL (4.0-10.0)
[2020-10-24 19:32] LABS: Acetaminophen < 5.0 ug/mL (10-30); Alanine Aminotransferase 80 U/L (0-41); Albumin Level 4.3 g/dL (3.5-5.2); Alcohol Level < 10 mg/dL (0-10); Alkaline Phosphatase 88 IU/L (40-130); Anion Gap 15.9 (5-19); Aspartate Amino Transferase 115 U/L (0-40); Blood Urea Nitrogen 18 mg/dL (6-20); Calcium 9.5 mg/dL (8.5-10.5); Carbon Dioxide 26 mmol/L (22-29); Chloride 106 mmol/L (98-107); Globulin 2.6 g/dL (1.3-4.6); Glomerular Filtration Rate 93.5 mL/min (90-130); Glucose 93 mg/dL (65-115); Osmolality Calculated 300 mOsm/kg (285-295); Potassium 3.9 mmol/L (3.5-5.1); Salicylate < 0.3 mg/dL (3-10); Sodium 144 mmol/L (136-145); Total Bilirubin 0.4 mg/dL (0.15-1.2); Total Protein 6.9 g/dL (6.6-8.7)
[2020-10-24 21:55] VITALS: BP 131/78; PULSE 102; RESP 15; TEMP 37.1; O2SAT 96
[2020-10-25 06:00] VITALS: RESP 16; TEMP 36.9
[2020-10-25] MEDS: buPROPion XL (24 HR) 300 mg Tablet PO (09:10)
[2020-10-25] MEDS: folic acid 1 mg Tablet PO (09:10)
[2020-10-25] MEDS: thiamine 100 mg Tablet 200 MG PO (09:11)
[2020-10-25] MEDS: nicotine 2 mg Gum BUCCAL ×3 (09:34→16:59)
[2020-10-25 14:00] VITALS: BP 104/60; PULSE 95; RESP 18; TEMP 36.2; O2SAT 94
[2020-10-25 15:01] LABS: Amphetamines Screen Urine Positive (Negative); Barbiturates Screen Urine Negative (Negative); Benzodiazepines Screen Urine Negative (Negative); Cocaine Screen Urine Negative (Negative); Opiate Screen Urine Negative (Negative); PCP Screen Urine Negative (Negative); THC Screen Urine Negative (Negative)
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
[2020-10-25 19:55] VITALS: BP 96/60; PULSE 74; RESP 17; TEMP 36.6; O2SAT 95
[2020-10-26 06:00] VITALS: BP 108/72; PULSE 66; RESP 15; TEMP 36.6; O2SAT 99
[2020-10-26] MEDS: buPROPion XL (24 HR) 300 mg Tablet PO (08:08)
[2020-10-26] MEDS: nicotine 2 mg Gum 4 MG BUCCAL ×3 (08:08→16:51)
[2020-10-26] MEDS: folic acid 1 mg Tablet PO (08:09)
[2020-10-26] MEDS: thiamine 100 mg Tablet 200 MG PO (08:09)
--- NOTE | 2020-10-26 09:17 | P.PN_ITS ---
NPU Therapy Progress Note Therapy Progress Note Date: 10/25/20 Time In: 19:15 Time Out: 19:30 Symptoms Reported: frustration, anger Mood: agitated, exhibiting delusional thought process, appropriate with ELECTRICAL ENGINEERING DESIGNER Progress Note: ELECTRICAL ENGINEERING DESIGNER approached Gagandeep in his room while resting quietly on his bed. He immediately begins to vent about how he needs to get shit going on finding him alternate housing. He describes paranoia about his neighbors watching him, how they have set up cameras and follow him around town. He believes they can listen to him on cell phone conversations and describes leaving his apartment to make cell phone calls. He has attempted to address these beliefs with the landlords. He beileves the neighbors to be voyeurs. He denies having these issues with other people and that this is an isolated event. He also states i think they are feeding me drugs . Intervention: ELECTRICAL ENGINEERING DESIGNER listened and provided empathy and support. Gagandeep presents as very invested in his delusions and has little to no insight. He states this shit is not all in my head! . He believes his symptoms would be alleviated if he were to just find another place to live. ELECTRICAL ENGINEERING DESIGNER discussed option of therapy treatment upon discharge and Gagandeep is willing to do this; however, since he says he will refuse to stay in [place] at the same apartment complex, he is unsure as to which clinic he should follow up with, [place] or [place]. Reported Goals Before Discharge: find an alternate place to live due to belief neighbors are watching him
[2020-10-26 14:00] VITALS: BP 111/73; PULSE 76; RESP 16; TEMP 36.8; O2SAT 97
--- NOTE | 2020-10-26 14:14 | PM.NPN ---
Subjective NPU Subjective: Interval history: Continues to have significant paranoia Previously reporting auditory hallucinations but currently denies having any hallucinations Patient is extremely irritable and becomes more irritated when asked about the possibility that people are watching him was not really happening Patient states that he has been compliant with his medication, denies any medication side effects Per nurse report, patient has been episodically irritable Mental Status Exam MSE Comments: Long hair, kempt, unshaven, tattoos on exposed skin, irritable, somewhat restless at times but redirectable, fair eye contact Psychomotor activity per above, somewhat restless, no agitation Speech is normal rate and volume, spontaneous, clear articulation, not pressured I am fine, somewhat constricted affect, not labile Alert and oriented to person, place, time, situation Memory and concentration appear to be intact per interview Thought process, linear, no flight of ideas, no looseness of associations Thought content, paranoid delusions, does not appear to be attending to any internal stimuli, no suicidal or homicidal ideation Insight and judgment appear to be fair at best Vitals/I&O/Wt Last Vital Signs Temp 97.9 F 10/26/20 06:00 Pulse 66 10/26/20 06:00 Resp 15 10/26/20 06:00 BP 108/72 10/26/20 06:00 Pulse Ox 99 10/26/20 06:00 Weight last 48 hrs Weight 88.451 kg Data NPU : 10/24/20 19:01 10/24/20 19:01 A&P Assessment and plan (1) Psychosis: Status: Acute Qualifiers: Psychosis type: unspecified psychosis type Qualified Code(s): F29 - Unspecified psychosis not due to a substance or known physiological condition (2) Post-traumatic stress disorder, chronic: Status: Chronic (3) Substance abuse: Status: Chronic Additional A&P Information Ongoing, significant paranoid delusions, history of substance abuse with recent positive urine drug screen for amphetamines in the context of patient recently requesting stimulants for his reported past history of ADHD. Patient is adamant and irritable about his delusions that people are watching him. Currently denying any PTSD symptoms but not currently on any medication targeting PTSD or anxiety symptoms. Patient has been on Wellbutrin 300 mg daily, concerns about excessive dopaminergic activity given that patient has significant paranoid delusions and history of psychotic symptoms. DISCONTINUE Wellbutrin START olanzapine 2.5 mg twice daily targeting paranoid delusions, psychotic symptoms We will discuss treatment options for any ongoing PTSD symptoms although current primary focuses mitigating paranoid delusions which appear to be significantly impacting his overall functioning Involuntary Hold Information 96 Hour Hold: 96 Hour Involuntary Admission: Yes 96 Hour Hold Ending Date: 10/30/20 96 Hour Hold Ending Time: 17:45 Attestations NPU Medical Necessity Statement*: Require psychiatric hospitalization for medication stabilization, coordination for safe discharge Coding Level of Care Code Acute Electric Vehicle Electrician for Shira Fwd Diagnoses Psychosis F29 Psychosis type: unspecified psychosis type Post-traumatic stress disorder, chronic F43.12 Substance abuse F19.10
--- NOTE | 2020-10-26 15:11 | PC.NURSE ---
Pt refused Zyprexa
[2020-10-26 20:32] VITALS: BP 109/70; PULSE 81; RESP 18; TEMP 36.8; O2SAT 98
--- NOTE | 2020-10-26 20:46 | PC.NURSE ---
SCHEDULED MED PT REFUSED HIS 2.5MG ZYPREXA, WILL CONTINUE TO MONITOR.
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
[2020-10-27 06:00] VITALS: BP 104/67; PULSE 66; RESP 17; TEMP 36.4; O2SAT 98
[2020-10-27] MEDS: folic acid 1 mg Tablet PO (07:43)
[2020-10-27] MEDS: thiamine 100 mg Tablet 200 MG PO (07:43)
[2020-10-27] MEDS: nicotine 2 mg Gum 4 MG BUCCAL ×2 (07:44→11:12)
--- NOTE | 2020-10-27 09:34 | PM.NDC ---
Diagnoses at Discharge Discharge Diagnosis (1) Psychosis: Status: Acute Qualifiers: Psychosis type: unspecified psychosis type Qualified Code(s): F29 - Unspecified psychosis not due to a substance or known physiological condition (2) Post-traumatic stress disorder, chronic: Status: Chronic (3) Substance abuse: Status: Chronic Permanent problem details: Sober date from alcohol, marijuana, and methamphetamines 11/25/19. Reason for Visit Reason for Visit: HALLUCINATIONS Hospital Course Hospital Course Patient admitted for worsening paranoia believing that people were watching him where he lives. At the time of initial evaluation it was reported that he was also experiencing auditory hallucinations although he subsequently denied ever having any auditory or visual hallucinations. Patient continued to have persistent paranoid ideation and delusions that people are watching him and perhaps even going into his place since he has been gone. Patient reports being sober from any alcohol or substances since November 2019 although his urine drug screen was positive for amphetamines. Presented himself in an organized manner with regards to speech, thoughts and behaviors despite ongoing paranoid delusions. Patient participated in unit milieu with no reports of any behavioral disturbances although he became irritable at times because he did not believe that anything was going on with him and that he did not need to start any medication. He denies any history of assaultive behavior and is also able to communicate his understanding of the consequences of acting on his delusions or potentially hurting someone based on his delusion that someone is watching him. Patient reports being compliant with follow-up and states that he will continue to be compliant with follow-up mental health care. Patient was not suicidal or homicidal at the time of discharge and did not appear to pose an imminent threat of harm to self or others. Low to moderate risk of harm to self or others given ongoing paranoid delusions and ideation believing that someone is watching him although he denied any suicidal ideation or homicidal ideation and denied any history of assaultive behavior and that he would not act on his delusions at the time of discharge. Patient's risk may continue to be elevated if he continues to refuse medication management to help mitigate these paranoid delusions or if he is noncompliant with mental health follow-up care or continues to use illicit substances or alcohol that may lead to unexpected, impulsive behavior. Risk mitigation included psychiatric hospitalization for observation, medication stabilization as well as coordination for post discharge care. Patient was able to communicate his understanding of the need to abstain from the use of any substances and alcohol as well as the need to be compliant with mental health care follow-up in order to further mitigate his risk of harm to self and others. Involuntary Hold Information 96 Hour Hold: 96 Hour Involuntary Admission: Yes 96 Hour Hold Ending Date: 10/30/20 96 Hour Hold Ending Time: 17:45 Mental Status Exam MSE Comments: Appears stated age, appropriately groomed and dressed, initially walking in the hallway but returned to his room and was cooperative with interview, good eye contact Psychomotor activity is neither increased nor decreased, no agitation Speech is normal rate and volume, spontaneous, clear articulation, not pressured I feel okay, full range, not labile Alert and oriented to person, place, time, situation Memory and concentration appear to be intact per interview Thought process, organized, linear, no flight of ideas, no looseness of associations Thought content, paranoid delusions, does not appear to be attending to any internal stimuli, no suicidal or homicidal ideation Insight and judgment appear to be fair to intact Discharge Data Vitals: Last Vital Signs Temp 97.6 F 10/27/20 06:00 Pulse 66 10/27/20 06:00 Resp 17 10/27/20 06:00 BP 104/67 10/27/20 06:00 Pulse Ox 98 10/27/20 06:00 Discharge Plan Discharge Patient Disposition: Home Condition: Stable Prescriptions: New olanzapine 5 mg Tablet 2.5 mg PO BID Qty: 60 RF: 0 Continued triamcinolone acetonide 0.1 % lotion 1 applic topical DAILY PRN (Reason: atopic dermatitis) Qty: 60 RF: 0 ketoconazole 2 % shampoo See Rx Instructions TOPICAL DAILY 30 Days Qty: 120 RF: 0 ibuprofen 800 mg Tablet 800 mg PO TID PRN (Reason: Pain) RF: 0 thiamine mononitrate (vit B1) 100 mg Tablet 200 mg PO DAILY 30 Days Qty: 30 RF: 1 Nicorette 4 mg gum 4 mg PO Q2H PRN (Reason: CRAVINGS) RF: 0 Beop-Rmak-Vnzmb (PABA) 3-133 mg-mcg Capsule 1 cap PO DAILY@0800 RF: 0 Elidel 1 % cream 1 applic topical BID@0800,1999 RF: 0 folic acid 1 mg tablet 1 mg PO DAILY@0800 RF: 0 Depo-Testosterone 200 mg/mL oil 200 mg IM Q10D RF: 0 cholecalciferol (vitamin D3) 1,250 mcg (50,000 unit) capsule 50,000 unit PO Q7D RF: 0 Discontinued Wellbutrin XL 300 mg tablet extended release 24 hr 300 mg PO DAILY@0800 RF: 0 Discharge Orders: Discharge Order (Routine); Ordered 10/27/20 Ordered By: José Manuel Melo Referrals: Leda Veloz PMHNP [Staff Physician] - 11/06/20 4:00 pm (medication management and NPU follow up) Sara May DO [Physician] - 11/30/20 9:30 am Discharge Diet: Regular Discharge Activity: Resume usual activity Discharge Attestations NPU Time Spent in Discharge Care*: greater than 30 min Status at Discharge: Cognitive status at discharge: cognitively intact, Behavioral status at discharge: cooperative, Functional status at discharge: independent ambulation Overall status at discharge: patient is back to baseline Coding Level of Care Code Acute [employer] 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
[2020-10-27 10:01] VITALS: BP 104/67; PULSE 66; RESP 17; TEMP 36.4; O2SAT 98
[2020-10-27] MEDS: ketoconazole Shampoo 120 mL Btl TOPICAL (10:07)
--- NOTE | 2020-10-27 17:25 | PC.RESP ---
Smoking Cessation information sent to patient.
== END 2020-10-27 14:27 | disposition home or self-care (01) | DRG 885 ==
LOC: ER 18:18 → NP 19:07
PROVIDERS: Admitting Provider Psychiatry & Neurology Psychiatry; Emergency Provider Emergency Medicine; Visit Provider Psychiatry & Neurology Psychiatry
DX: F29 Unspecified psychosis not due to a substance or known physiological condition (principal); F25.1 Schizoaffective disorder, depressive type; Z59.0 Homelessness; L30.9 Dermatitis, unspecified; E29.1 Testicular hypofunction; E55.9 Vitamin D deficiency, unspecified; Z90.79 Acquired absence of other genital organ(s); F17.210 Nicotine dependence, cigarettes, uncomplicated; F43.12 Post-traumatic stress disorder, chronic; F41.1 Generalized anxiety disorder; F10.11 Alcohol abuse, in remission; F15.10 Other stimulant abuse, uncomplicated; F12.11 Cannabis abuse, in remission; Z81.3 Family history of other psychoactive substance abuse and dependence
CPT/HCPCS: 80053; 80306; 80307; 85025; 99285

== ENCOUNTER 2020-11-21 15:46 | Inpatient (IN) | payer MEDICAID, SELFPAY ==
[2020-09-08 11:00] VITALS: BP 136/86; BMI 28.0
[2020-11-21] VITALS (7 sets, daily range): BP systolic 112–127; BP diastolic 71–86; PULSE 80–111; RESP 12–18; TEMP 36.8; O2SAT 94–98; BMI 24.3
--- NOTE | 2020-11-21 16:42 | PC.PHAR ---
pt states he takes care of his own medications-pts pharmacy stated [facility] [place] [phone] called [facility] they state the pt was discharged about 4-6 weeks-pt states he had a extra bottle of testosterone cypionate 200mg/ml last filled on 10/12/20 30d/s and rx on hold on 11/04/20 pt states he gave himself the injection 3 days ago-pts pharmacy states they have rxs on hold for wellbuptrin xl 300mg, vitamin d3 88773 units and testosterone cypionate on hold from 11/04/20-pt had rx for olanzapine 2.5mg bid wrote in october 2020 pt states he will not take it-
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
[2020-11-21] MEDS: ziprasidone 20 mg/mL SDV IM (17:30)
[2020-11-21] MEDS: LORazepam 2 mg/mL INJ 1 mL IM (17:30)
[2020-11-21] MEDS: acetaminophen 325 mg Tablet 650 MG PO (17:30)
[2020-11-21] MEDS: benztropine 1 mg/mL SDV 2 mL 2 MG IM (17:30)
[2020-11-21 17:32] LABS: Basophils % 0.3 %; Eosinophils # 0.1 10^3/uL (0.0-0.8); Eosinophils % 0.8 %; Hemoglobin 14.1 g/dL (11.7-16.6); Lymphocytes # 2.9 10^3/uL (0.8-4.8); Lymphocytes % 19.3 %; Mean Corpuscular HGB Conc 33.6 g/dL (30.0-36.0); Mean Corpuscular Volume 86.4 fL (80-94); Mean Platelet Volume 10.1 fL (7.4-10.4); Monocytes # 1.2 10^3/uL (0.2-0.9); Neutrophils # 10.77 10^3/uL (1.8-7.7); Neutrophils % 71.3 %; Nucleated Red Blood Cells % 0 %; Platelet Count 394 10^3/cmm (130-400); Red Blood Count 4.86 10^6/uL (4.1-5.3); Red Cell Distribution Width 14.7 % (12.1-15.1); White Blood Count 15.1 10^3/uL (4.0-10.0)
[2020-11-21] MEDS: water for injection-sterile 10 ML (17:37)
[2020-11-21 18:08] LABS: Alanine Aminotransferase 23 U/L (0-41); Albumin Level 4.9 g/dL (3.5-5.2); Alkaline Phosphatase 84 IU/L (40-130); Anion Gap 19.5 (5-19); Aspartate Amino Transferase 26 U/L (0-40); Blood Urea Nitrogen 11 mg/dL (6-20); Calcium 9.7 mg/dL (8.5-10.5); Carbon Dioxide 23 mmol/L (22-29); Chloride 99 mmol/L (98-107); Creatinine Clr Calc Pharmacy 121.6493; Globulin 2.5 g/dL (1.3-4.6); Glomerular Filtration Rate 107.1 mL/min (90-130); Glucose 121 mg/dL (65-115); Osmolality Calculated 287 mOsm/kg (285-295); Potassium 3.5 mmol/L (3.5-5.1); Sodium 138 mmol/L (136-145); Total Bilirubin 0.8 mg/dL (0.15-1.2); Total Protein 7.4 g/dL (6.6-8.7)
[2020-11-21 18:10] LABS: Acetaminophen < 5.0 ug/mL (10-30); Salicylate < 0.3 mg/dL (3-10)
--- NOTE | 2020-11-21 20:29 | PC.NURSE ---
Report given to NPU, pt now awaiting transport to room.
--- NOTE | 2020-11-21 21:20 | PC.NURSE ---
Chemical restraint charting Chemical restraint documentation is not charted yet from ED, IT was not complete when admitted to NPU from ED. Contacted CRUZ PEÑA in ED to finish this documentation. Pt arrived in NPU at 2037. Pt is sedated and in his room resting at this time.
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
[2020-11-22 06:00] VITALS: BP 98/63; PULSE 64; RESP 20; TEMP 36.8; O2SAT 97
[2020-11-22] MEDS: nicotine 2 mg Gum 4 MG BUCCAL ×4 (06:58→16:58)
[2020-11-22 12:42] LABS: Amphetamines Screen Urine Negative (Negative); Barbiturates Screen Urine Negative (Negative); Benzodiazepines Screen Urine Negative (Negative); Cocaine Screen Urine Negative (Negative); Opiate Screen Urine Negative (Negative); PCP Screen Urine Negative (Negative); THC Screen Urine Negative (Negative)
[2020-11-22 14:00] VITALS: BP 110/74; PULSE 88; RESP 17; TEMP 36.8; O2SAT 95
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
[2020-11-22 20:24] VITALS: BP 106/70; PULSE 86; RESP 15; TEMP 36.4; O2SAT 95
[2020-11-23 06:00] VITALS: BP 96/60; PULSE 64; RESP 15; TEMP 36.5; O2SAT 98
[2020-11-23] MEDS: nicotine 2 mg Gum 4 MG BUCCAL ×5 (08:10→20:21)
--- NOTE | 2020-11-23 08:31 | PC.NURSE ---
refused scheduled Invega
[2020-11-23 14:00] VITALS: BP 115/65; PULSE 78; RESP 20; TEMP 36.8; O2SAT 97
--- NOTE | 2020-11-23 16:01 | P.PN_ITS ---
Subjective NPU Subjective: Interval history: Continues to have paranoid delusions, continues to refuse medication Patient continues to be guarded and evasive and reluctant to start any treatment despite discussing living arrangement options that are contingent on him being compliant with his medication Continues to deny any depressive symptoms, denies any auditory or visual destinations, denies any suicidal or homicidal ideation Mental Status Exam MSE Comments: Appropriately groomed and dressed, hair pulled back in ponytail, wearing hospital scrubs, guarded but cooperative, calm Psychomotor activity is neither increased nor decreased, no agitation Speech is normal rate and volume, spontaneous, clear articulation, not pressured I am fine, congruent affect, not labile Alert and oriented to person, place, time, situation Memory and concentration appear to be intact per interview Thought process, linear, no flight of ideas, no looseness of associations Thought content, paranoid delusions, does not appear to be attending to any internal stimuli, no suicidal or homicidal ideation Insight and judgment appear to be fair Vitals/I&O/Wt Last Vital Signs Temp 97.7 F 11/23/20 06:00 Pulse 64 11/23/20 06:00 Resp 15 11/23/20 06:00 BP 96/60 11/23/20 06:00 Pulse Ox 98 11/23/20 06:00 Data NPU : 11/21/20 17:20 11/21/20 17:20 A&P Assessment and plan (1) Psychosis: Status: Acute Qualifiers: Psychosis type: unspecified psychosis type Qualified Code(s): F29 - Unspecified psychosis not due to a substance or known physiological condition Additional A&P Information Continues to have paranoid delusions and refuses medication CONTINUE current medication, continue to offer medication and provide psychoeducation on need for medication Continue to coordinate with medical social worker for post discharge treatment Involuntary Hold Information 96 Hour Hold: 96 Hour Involuntary Admission: Yes 96 Hour Hold Ending Date: 11/27/20 96 Hour Hold Ending Time: 16:30 Attestations NPU Medical Necessity Statement*: Continues require psychiatric hospitalization for medication stabilization, coordination for safe discharge Coding Level of Care Code Acute Director Physical for Shira Rosa Diagnoses Psychosis F29 Psychosis type: unspecified psychosis type
[2020-11-23 20:33] VITALS: BP 106/57; PULSE 78; RESP 17; TEMP 36.8; O2SAT 99
[2020-11-24 05:38] VITALS: BP 83/48; PULSE 62; RESP 17; TEMP 36.6; O2SAT 96
[2020-11-24] MEDS: nicotine 2 mg Gum 4 MG BUCCAL ×3 (07:48→16:37)
--- NOTE | 2020-11-24 07:50 | PC.NURSE ---
refused scheduled Invega pill this morning
--- NOTE | 2020-11-24 11:27 | PC.RESP ---
SMOKING CESSATION INFORMATION SENT TO PATIENT.
[2020-11-24] MEDS: paliperidone palmitate 234 mg Syringe IM (13:21)
--- NOTE | 2020-11-24 13:21 | PC.NURSE ---
INVLUIS ALFREDO SUSTENNA 234 MG GIVEN IM ORDERED BY PHYSICIAN. INJECTION GIVEN IN LEFT DELTOID. PT EDUCATED ON MED GIVEN & VERBALIZED UNDERSTANDING. WILL CONT TO MONITOR INJECTION SITE FOR ANY REDNESS, SWELLING, OR IRRITATION. LOT [id number] EXP 02/2022
[2020-11-24 14:00] VITALS: BP 115/71; PULSE 79; RESP 18; TEMP 36.7; O2SAT 96
--- NOTE | 2020-11-24 14:22 | PM.NPN ---
Subjective NPU Subjective: Interval history: Denies any interval mood symptoms, denies any depressive symptoms, denies any suicidal ideation Continues to have paranoid delusions, denies any auditory or visual destinations Patient states that he is agreeable to take long-acting injection as part of requirement for post discharge housing No reported interval behavioral disturbances Mental Status Exam MSE Comments: Initially walking up and down unit hallway, polite, interactive, appropriately groomed and dressed, hair pulled back in ponytail, wearing hospital scrubs, good eye contact Psychomotor activity is neither increased nor decreased, no agitation Speech is normal rate and volume, spontaneous, clear articulation, not pressured I feel okay, congruent affect, not labile Alert and oriented to person, place, time, situation Memory and concentration appear to be intact per interview Thought process, linear, no flight of ideas, no looseness of associations Thought content, paranoid delusions, does not appear to be attending to any internal stimuli, no suicidal or homicidal ideation Insight and judgment appear to be fair Vitals/I&O/Wt Last Vital Signs Temp 97.8 F 11/24/20 05:38 Pulse 62 11/24/20 05:38 Resp 17 11/24/20 05:38 BP 83/48 11/24/20 05:38 Pulse Ox 96 11/24/20 05:38 Data NPU : 11/21/20 17:20 11/21/20 17:20 A&P Assessment and plan (1) Psychosis: Status: Acute Qualifiers: Psychosis type: unspecified psychosis type Qualified Code(s): F29 - Unspecified psychosis not due to a substance or known physiological condition Additional A&P Information Continues report paranoid delusions but is much more cooperative and agreeable today to long-acting injection as well as preplacement COVID and TB requirements. Denies any interval mood symptoms, denies depressive symptoms, denies any suicidal ideation. 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
[2020-11-24 22:00] VITALS: BP 113/75; PULSE 74; RESP 16; TEMP 37.1; O2SAT 96
--- NOTE | 2020-11-24 22:08 | PC.NURSE ---
PM Assessment Denies AH/VH, Denies SI/HI, Denies Pain, Pt is excited about going to [facility] near [place], [place] on discharge. Reports having a good feeling about this placement and looks forward to the change. Pt reports feeling validated regarding his past paranoia and feelings of being watched by his neighbors. Pt interacts with other patients in a appropriate manner, calm/cooperative with staff. Pt is currently resting in his room. will continue to observe
[2020-11-25 06:00] VITALS: BP 97/61; PULSE 68; RESP 16; TEMP 36.7; O2SAT 95
[2020-11-25] MEDS: nicotine 2 mg Gum 4 MG BUCCAL ×4 (08:10→18:55)
[2020-11-25] MEDS: ibuprofen 600 mg Tablet PO (09:44)
--- NOTE | 2020-11-25 10:43 | PM.NPN ---
Subjective NPU Subjective: Interval history: No interval behavioral disturbances per staff report. No interval suicidal ideation, denies any interval mood symptoms Continues to report some paranoid delusions but states that he feels safe on the unit, denies any auditory or visual destinations Patient denies any side effects from paliperidone long-acting injection Mental Status Exam MSE Comments: Calm, cooperative, appropriately groomed and dressed, good eye contact Psychomotor activity is neither increased nor decreased, no agitation Speech is normal rate and volume, spontaneous, clear articulation, not pressured Good, congruent affect, not labile Alert and oriented to person, place, time, situation Memory and concentration appear to be intact per interview Thought process, linear, no flight of ideas, no looseness of associations Thought content, paranoid delusions, no hallucinations, no suicidal or homicidal ideation Insight and judgment appear to be fair Vitals/I&O/Wt Last Vital Signs Temp 98.1 F 11/25/20 06:00 Pulse 68 11/25/20 06:00 Resp 16 11/25/20 06:00 BP 97/61 11/25/20 06:00 Pulse Ox 95 11/25/20 06:00 11/24/20 11/25/20 11/25/20 22:59 06:59 14:59 Intake Total 240 / 240 Balance 240 / 240 Data NPU : 11/21/20 17:20 11/21/20 17:20 A&P Assessment and plan (1) Psychosis: Status: Acute Qualifiers: Psychosis type: unspecified psychosis type Qualified Code(s): F29 - Unspecified psychosis not due to a substance or known physiological condition Additional A&P Information Continues to report some paranoid delusions but denies any auditory or visual destinations, denies any mood symptoms, denies any suicidal ideation. Reports tolerating long-acting injection with no reported side effects. 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
[2020-11-25 14:00] VITALS: BP 112/68; PULSE 77; RESP 15; TEMP 36.7; O2SAT 98
[2020-11-25 21:29] VITALS: BP 109/67; PULSE 70; RESP 18; TEMP 36.5; O2SAT 95
[2020-11-26 06:00] VITALS: RESP 17
[2020-11-26] MEDS: nicotine 2 mg Gum 4 MG BUCCAL ×4 (07:39→16:51)
[2020-11-26] MEDS: triamcinolone 0.1% cream 15 gm 1 APPLIC TOPICAL (10:29)
--- NOTE | 2020-11-26 10:43 | PM.NPN ---
Subjective NPU Subjective: Interval history: Reports feeling continued soreness at his long-acting injection site but otherwise denies any interval complaints Denies any interval mood symptoms, denies any depressed symptoms, denies any suicidal ideation Continues to report paranoid delusions about people watching him where he lives but states he feels safe here Per staff report, no interval behavioral disturbances Mental Status Exam MSE Comments: Sitting up on his bed, appropriately groomed and dressed, good eye contact, polite, interactive Psychomotor activity is neither increased nor decreased, no agitation Speech is normal rate and volume, spontaneous, clear articulation, not pressured Good, congruent affect, not labile Alert and oriented to person, place, time, situation Memory and concentration appear to be intact per interview Thought process, linear, no flight of ideas, no looseness of associations Thought content, paranoid delusions, no hallucinations, no suicidal or homicidal ideation Insight and judgment appear to be fair Vitals/I&O/Wt Last Vital Signs Temp 97.7 F 11/25/20 21:29 Pulse 70 11/25/20 21:29 Resp 17 11/26/20 06:00 BP 109/67 11/25/20 21:29 Pulse Ox 95 11/25/20 21:29 11/25/20 11/26/20 11/26/20 22:59 06:59 14:59 Intake Total 240 / 720 Balance 240 / 720 Weight last 48 hrs Weight 72.575 kg Data NPU : 11/21/20 17:20 11/21/20 17:20 A&P Assessment and plan (1) Psychosis: Status: Acute Qualifiers: Psychosis type: unspecified psychosis type Qualified Code(s): F29 - Unspecified psychosis not due to a substance or known physiological condition Additional A&P Information Continued paranoid delusions appears to be at baseline, no interval behavioral disturbances CONTINUE current treatment, continue to monitor Involuntary Hold Information 96 Hour Hold: 96 Hour Involuntary Admission: Yes 96 Hour Hold Ending Date: 11/27/20 96 Hour Hold Ending Time: 16:30 Attestations NPU Medical Necessity Statement*: Continues to require psychiatric hospitalization for stabilization, coordination for safe discharge Coding Level of Care Code 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
[2020-11-26 14:00] VITALS: BP 124/67; PULSE 74; RESP 17; TEMP 37.1; O2SAT 96
[2020-11-26 20:18] VITALS: BP 121/76; PULSE 76; RESP 18; TEMP 37.1; O2SAT 97
[2020-11-27 06:00] VITALS: BP 119/79; PULSE 77; RESP 15; TEMP 37; O2SAT 97
[2020-11-27] MEDS: nicotine 2 mg Gum 4 MG BUCCAL ×4 (07:36→17:09)
--- NOTE | 2020-11-27 10:14 | PM.NPN ---
Subjective NPU Subjective: Interval history: Continues to deny any interval complaints, no suicidal ideation Ongoing, baseline paranoia but denies any thoughts of acting on paranoia and feels safe in current environment No interval behavioral disturbances Mental Status Exam MSE Comments: Sitting in day room, appropriately groomed and dressed, good eye contact, polite, interactive Psychomotor activity is neither increased nor decreased, no agitation Speech is normal rate and volume, spontaneous, clear articulation, not pressured Good, congruent affect, not labile Alert and oriented to person, place, time, situation Memory and concentration appear to be intact per interview Thought process, linear, no flight of ideas, no looseness of associations Thought content, paranoid delusions, no hallucinations, no suicidal or homicidal ideation Insight and judgment appear to be fair Vitals/I&O/Wt Last Vital Signs Temp 98.6 F 11/27/20 06:00 Pulse 77 11/27/20 06:00 Resp 15 11/27/20 06:00 BP 119/79 11/27/20 06:00 Pulse Ox 97 11/27/20 06:00 Weight last 48 hrs Weight 72.575 kg Data NPU : 11/21/20 17:20 11/21/20 17:20 A&P Assessment and plan (1) Psychosis: Status: Acute Qualifiers: Psychosis type: unspecified psychosis type Qualified Code(s): F29 - Unspecified psychosis not due to a substance or known physiological condition Additional A&P Information Patient appears to be at baseline, no interval behavioral disturbances, no mood symptoms CONTINUE current treatment Rapid COVID test for placement TB test pending Involuntary Hold Information 96 Hour Hold: 96 Hour Involuntary Admission: Yes 96 Hour Hold Ending Date: 11/27/20 96 Hour Hold Ending Time: 16:30 Attestations NPU Medical Necessity Statement*: Continues to require psychiatric hospitalization, coordination for safe discharge Coding 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
[2020-11-27 11:08] LABS: SARS Covid-2 Antigen Negative (Negative)
[2020-11-27 13:26] VITALS: BP 119/77; PULSE 93; RESP 16; TEMP 36.9; O2SAT 99
--- NOTE | 2020-11-27 15:47 | PC.NURSE ---
Shift Summary Patient has been calm, cooperative, and walking the hallways throughout most of the day. No issues with staff or other patients.
[2020-11-27 20:03] VITALS: BP 118/76; PULSE 79; RESP 18; TEMP 36.6; O2SAT 95
[2020-11-28 06:00] VITALS: BP 114/76; PULSE 65; RESP 17; TEMP 36.8; O2SAT 97
[2020-11-28] MEDS: nicotine 2 mg Gum 4 MG BUCCAL ×2 (06:26→08:50)
--- NOTE | 2020-11-28 08:24 | P.DS_ITS ---
Diagnoses at Discharge Discharge Diagnosis (1) Psychosis: Status: Acute Qualifiers: Psychosis type: unspecified psychosis type Qualified Code(s): F29 - Unspecified psychosis not due to a substance or known physiological condition Reason for Visit Reason for Visit: [facility] Hospital Course Hospital Course 40-year-old male with longstanding history of delusional disorder with paranoid themes believing that people were watching him where he lived. Patient was noncompliant with his medication secondary to paranoia as well as stating that he did not believe that he needed medication although after lengthy discussions and providing medication information, patient was agreeable to take long-acting injection of paliperidone. Patient was calm and cooperative throughout his hospital stay and did not demonstrate any behavioral disturbances. Patient d enied any mood symptoms throughout his hospital stay and denied any suicidal ideation and did not communicate any thoughts about harming others. Patient was not suicidal at the time of discharge but continued to have some paranoia but did not appear to pose an imminent threat of harm to self or others. Low to moderate risk of harm to self given no current suicidal ideation and no current mood symptoms although patient does have longstanding delusional disorder with paranoid themes patient has not demonstrated any assaultive behavior and has not demonstrated any thoughts about wanting to harm others related to his delusions although his risk may be elevated if he uses any substances leading to unexpected, impulsive behavior. Risk mitigation included psychiatric hospitalization, long-acting injection for medication stabilization, recommendation to abstain from use of substances and alcohol as well as need for compliance with his medication and medication management follow-up. Patient was able to communicate his understanding of the need to be compliant with his long- acting injection monthly as well as need for abstaining from the use of substances and alcohol in order to further mitigate his risk of harm to self and others. Involuntary Hold Information 96 Hour Hold: 96 Hour Involuntary Admission: Yes 96 Hour Hold Ending Date: 11/27/20 96 Hour Hold Ending Time: 16:30 Mental Status Exam MSE Comments: Standing next to the nurses station, calm, cooperative, appropriately groomed and dressed, good eye contact, polite, interactive Psychomotor activity is neither increased nor decreased, no agitation Speech is normal rate and volume, spontaneous, clear articulation, not pressured I feel good, congruent affect, smiles appropriately at times during interview, not labile Alert and oriented to person, place, time, situation Memory and concentration appear to be intact per interview Thought process, linear, no flight of ideas, no looseness of associations Thought content, paranoid delusions, no hallucinations, no suicidal or homicidal ideation Insight and judgment appear to be fair Discharge Data Data Completed and Pending: Pending at discharge Category Date Time Status [id number]-OU-Cb ld Plus Routine Lab 11/24/20 14:53 Received Labs from last 24 hours 11/27/20 10:20 SARS-CoV-2 Ag (Rap id) Negative Vitals: Last Vital Signs Temp 98.3 F 11/28/20 06:00 Pulse 65 11/28/20 06:00 Resp 17 11/28/20 06:00 BP 114/76 11/28/20 06:00 Pulse Ox 97 11/28/20 06:00 Discharge Plan Discharge Patient Disposition: Home Condition: Stable Prescriptions: Continued ibuprofen 800 mg Tablet 800 mg PO TID PRN (Reason: Pain) RF: 0 nicotine (polacrilex) 2 mg gum 4 mg PO Q2H PRN (Reason: Nicotine Cravings) RF: 0 Srjz-Svlf-Jwqyb (il-PN-dkppoe) 400-2,000 mcg Tablet 2 tab PO DAILY RF: 0 testosterone cypionate 200 mg/mL oil 200 mg IM .EVERY 10 DAYS Qty: 5 RF: 0 Discharge Orders: Discharge Order (Routine); Ordered 11/28/20 Ordered By: José aMnuel Melo Referrals: [facility] [Outside] - 12/04/20 11:45 am ([facility]) Discharge Diet: Regular Discharge Activity: Resume usual activity Patient Instructions: Opioid Safety Discharge Attestations NPU Time Spent in Discharge Care*: greater than 30 min Status at Discharge: Cognitive status at discharge: cognitively intact , Behavioral status at discharge: cooperative , Functional status at discharge: independent ambulation Overall status at discharge: patient is back to baseline Coding Level of Care Code Acute Chg FW DC note Diagnoses Psychosis F29 Psychosis type: unspecified psychosis type
[2020-11-28 08:34] VITALS: BP 114/76; PULSE 65; RESP 17; TEMP 36.8; O2SAT 97
--- NOTE | 2020-11-28 09:12 | PC.NURSE ---
report to pathways report called to CRUZ Torres at this time. no questions or concerns at this time.
[2020-11-29 12:47] LABS: Quantiferon Mitogen 8.05 IU/mL; Quantiferon Nil 0.01 IU/mL; Quantiferon Plus TB1 0.05 IU/mL; Quantiferon Plus TB2 0.03 IU/mL; Quantiferon TB Gold NEGATIVE (NEGATIVE)
== END 2020-11-28 09:55 | disposition home or self-care (01) | DRG 885 ==
LOC: ER 16:19 → NP 17:34
PROVIDERS: Admitting Provider Psychiatry & Neurology Psychiatry; Emergency Provider Emergency Medicine; Visit Provider Psychiatry & Neurology Psychiatry
DX: F29 Unspecified psychosis not due to a substance or known physiological condition (principal); F25.1 Schizoaffective disorder, depressive type; Z91.14 Patient's other noncompliance with medication regimen; R22.2 Localized swelling, mass and lump, trunk; L30.9 Dermatitis, unspecified; F41.1 Generalized anxiety disorder; E29.1 Testicular hypofunction; F17.210 Nicotine dependence, cigarettes, uncomplicated; E55.9 Vitamin D deficiency, unspecified; Z90.79 Acquired absence of other genital organ(s); F43.12 Post-traumatic stress disorder, chronic
CPT/HCPCS: 36415; 80053; 80306; 80307; 85025; 86480; 87426; 96372; 99285; J0515; J1071; J2060; J3486